=== PATIENT | male | born 1990 | race Caucasian/White ===

== ENCOUNTER 2019-11-06 22:51 | Emergency (ER) | payer MEDICAID ==
[~2019-11-06] VITALS: Ht 162.6 cm; Wt 64.0 kg
[2019-11-06] MEDS ORDERED: KETOROLAC 30MG/ML VIAL IM ONE (23:45)
[2019-11-07 01:40] VITALS: BP 119/74
== END 2019-11-07 01:41 | disposition home or self-care (01) ==
LOC: ER 22:51
DX: M25.571 Pain in right ankle and joints of right foot (principal); M54.41 Lumbago with sciatica, right side
CPT/HCPCS: 73610; 96372; 99283; J1885